=== PATIENT | female | born 1960 | race Two or more races ===

== ENCOUNTER 2024-11-21 17:54 | Inpatient (IN) | payer OTHER, MEDICAID ==
[~2024-11-21] VITALS: Ht 165.1 cm; Wt 90.9 kg
--- NOTE | 2024-11-21 19:34 | ED.PDOC ---
History of Present Illness HPI Comments 64-YEAR-OLD FEMALE PRESENTS TO ER WITH COMPLAINTS OF FLU-LIKE SYMPTOMS X2 DAYS. PATIENT REPORTS THAT SHE HAS BEEN EXPERIENCING FRONTAL HEADACHE, INTERMITTENT NAUSEA/VOMITING, BODY ACHES, GENERALIZED WEAKNESS AND DRY COUGH X2 DAYS. DENIES USE OF MEDICATIONS FOR CURRENT SYMPTOMS. SHE RATES HER CURRENT FRONTAL HEADACHE AND BODY ACHES PAIN A 9/10. STATES SHE HAS BEEN AROUND HER GRANDDAUGHTER WHO HAS ALSO BEEN EXPERIENCING SIMILAR SYMPTOMS AND PRESENTS TO ER IN MILD DISTRESS, PRESENT IN WHEELCHAIR. DENIES FEVER, SHORTNESS OF BREATH, CHEST PAIN, HEMOPTYSIS, SORE THROAT, DIZZINESS, ABDOMINAL PAIN, CHANGES IN URINATION/BM OR ANY FURTHER SYMPTOMS/COMPLAINTS Chief Complaint: Flu like Time Seen by MD: 18:09 Primary Care Provider: UNKNOWN Reviewed Notes: Nurses Notes, Medications, Allergies Information Source: Patient Mode of Arrival: Ambulatory Past Medical History PAST MEDICAL HISTORY: Denies Surgical History: Denies all surgeries Family History Family History: Unknown Social History Smoker: Non-Smoker Alcohol: Denies ETOH Use Drugs: Denies Drug Use Lives In: Home Constitutional: See HPI EENTM: No Symptoms Reported Respiratory: See HPI Cardiovascular: No Symptoms Reported Gastrointestinal: See HPI Genitourinary: No Symptoms Reported Neurological: See HPI Musculoskeletal: No Symptoms Reported Integumentary: No Symptoms Reported Allergic/Immunocompromised: others (DENIES) Hematologic/Lymphatic: No Symptoms Reported Endocrine: No Symptoms Reported Psychiatric: No symptoms Reported Physical Exam General Appearance: Mild Distress, Obese HEENT: Normal ENT Inspection, PERRL/EOMI, Pharynx Normal, TMs Normal Neck: Full Range of Motion, Non-Tender, Normal Respiratory: Chest Non-Tender, Lungs Clear, No Accessory Muscle Use, No Respiratory Distress, Normal Breath Sounds Cardiovascular: No Murmur, No Gallop, Regular Rate/Rhythm Breast Exam: Deferred Gastrointestinal: No Organomegaly, Non Tender, No Pulsatile Mass, Normal Bowel Sounds, Soft Genitalia: Deferred Pelvic: Deferred Rectal: Deferred Extremities: Normal capillary refill, Normal range of motion Neurologic: Alert, production control analyst II-XII nml as Tested, No Motor Deficits, No Sensory Deficits Cerebellar Function: Normal Reflexes: Normal Skin: Dry, Normal Color, Warm Peripheral Pulses: 2+ Radial (R), 2+ Radial (L), 2+ Brachial (R), 2+ Brachial (L) Lymphatic: No Adenopathy Was a procedure done? Was a procedure done?: No Sedation Sedation?: No EKG EKG : Pulse Rate (adult): 63 [place]: Normal Cardiac Rhythm: NSR (SR) Fever Differential Dx Differential Diagnosis: Pneumonia, Pulmonary Embolus, Respiratory Failure, Seps is, Other (COVID-19, INFLUENZA) X-Ray, Labs, Meds, VS Vital Signs Date Time Temp Pulse Resp B/P (MAP) Pulse Ox O2 Delivery O2 Flow Rate FiO2 11/21/24 21:22 63 11/21/24 21:19 63 11/21/24 20:54 79 16 136/79 (98) 92 11/21/24 20:20 Room Air* 0 21 11/21/24 19:32 Room Air* 0 21 11/21/24 18:59 81 14 92 Room Air 11/21/24 18:59 98.9 81 14 138/69 (92) 92 98.9 11/21/24 18:39 98.9 81 14 138/69 (92) 92 Lab Test 11/21/24 19:47 11/21/24 19:01 Range/Units White Blood Count 2.9 L 4.4-10.8 10^3/uL Red Blood Count 5.28 H 4.0-5.20 10^6/uL Hemoglobin 14.9 12.2-16.2 g/dL Hematocrit 43.6 36.0-46.0 % Mean Corpuscular Volume 82.6 80.0-100.0 fL Mean Corpuscular Hemoglobin 28.3 28.0-32.0 pg Mean Corpuscular Hemoglobin Concent 34.3 32.0-36.0 g/dL Red Cell Distribution Width 13.1 11.8-14.3 % Platelet Count 148 140-450 10^3/uL Mean Platelet Volume 9.6 6.9-10.8 fL Neutrophils (%) (Auto) 66.7 37.0-80.0 % Lymphocytes (%) (Auto) 20.7 10.0-50.0 % Monocytes (%) (Auto) 11.8 0.0-12.0 % Eosinophils (%) (Auto) 0.0 0.0-7.0 % Basophils (%) (Auto) 0.8 0.0-2.0 % Neutrophils # (Auto) 1.9 1.6-8.6 10 ^3/uL Lymphocytes # (Auto) 0.6 0.4-5.4 10 ^3/uL Monocytes # (Auto) 0.3 0-1.3 10 ^3/uL Eosinophils # (Auto) 0 0-0.8 10 ^3/uL Basophils # (Auto) 0 0-0.2 10 ^3/uL Nucleated Red Blood Cells 0.7 % Sodium Level 137 136-145 mmol/L Potassium Level 3.5 3.5-5.1 mmol/L Chloride Level 97 L 98-107 mmol/L Carbon Dioxide Level 29 20-31 mmol/L Anion Gap 11 5-15 Blood Urea Nitrogen 12 9-23 mg/dL Creatinine 1.20 H 0.550-1.02 mg/dL Glomerular Filtration Rate Calc 51 >90 mL/min BUN/Creatinine Ratio 10.0 10.0-20.0 Serum Glucose 86 74-106 mg/dL Lactic Acid Level 1.6 0.4-2.0 mmol/L Calcium Level 10.6 H 8.7-10.4 mg/dL Troponin I High Sensitivity 60 *H </=34 ng/L Influenza Type A Antigen Positive Negative Influenza Type B Antigen Negative Negative SARS-CoV-2 Antigen (Rapid) Negative NEGATIVE Current Medications Medications (Trade) Dose Ordered Sig/Darell Route Start Time Stop Time Status Last Admin Sodium Chloride 1,000 ml @ 1,000 mls/hr Q1H ONCE IV 11/21/24 19:30 11/21/24 20:29 DC 11/21/24 20:10 Ondansetron HCl (Zofran Po) 4 mg ONCE ONCE PO 11/21/24 19:30 11/21/24 19:31 DC 11/21/24 19:43 Methylprednisolone Sodium Succinate (Solu Medrol) 125 mg ONCE ONCE IV 11/21/24 19:30 11/21/24 19:31 DC 11/21/24 20:10 Acetaminophen (Tylenol Tablet) 650 mg ONCE ONCE PO 11/21/24 19:30 11/21/24 19:31 DC 11/21/24 19:43 Doxycycline Hyclate 100 ml @ 50 mls/hr ONCE ONCE IV 11/21/24 20:15 11/21/24 22:14 DC 11/21/24 21:05 Ceftriaxone Sodium 50 ml @ 100 mls/hr ONCE ONCE IV 11/21/24 20:15 11/21/24 20:44 DC 11/21/24 20:28 PATIENT: GAUTAM BALTAZARCCT: [id number]: [id number] : 1960 LOC: ER ROOM / BED: / AGE / SEX: 64 / F ADM STATUS: REG ER SERVICE 26 ORDERING PHYSICIAN: SAMANTHA HALE PROCEDURE(s): CXR1 - CHEST XRAY 1 VIEW REASON: COUGH ORDER NUMBER(s): [id number], ACCESSION NUMBER(s): [id number] CHEST RADIOGRAPH Indication: COUGH Technique: Single frontal view of the chest was obtained COMPARISON: None FINDINGS: Lines and Tubes: None Lungs: Congestion Pleura: No effusion. No pneumothorax. Cardiomediastinal contours: Cardiomegaly Bones: Unremarkable IMPRESSION: Mild pulmonary vascular congestion versus viral pneumonia. ATED BY: THEE NARVAEZ MD DICTATED DATE/TIME: 11/21/241999 SIGNED BY: THEE NARVAEZ MD SIGNED DATE/TIME: 11/21/241999 CC: PATIENT: DONALD BALTAZAR ACCT: [id number] UNIT: [id number] : 1960 LOC: ER ROOM / BED: / AGE / SEX: 64 / F ADM STATUS: REG ER SERVICE 26 ORDERING PHYSICIAN: SAMANTHA HALE PROCEDURE(s): CXR1 - CHEST XRAY 1 VIEW REASON: COUGH ORDER NUMBER(s): [id number], ACCESSION NUMBER(s): [id number] CHEST RADIOGRAPH Indication: COUGH Technique: Single frontal view of the chest was obtained COMPARISON: None FINDINGS: Lines and Tubes: None Lungs: Congestion Pleura: No effusion. No pneumothorax. Cardiomediastinal contours: Cardiomegaly Bones: Unremarkable IMPRESSION: Mild pulmonary vascular congestion versus viral pneumonia. ATED BY: THEE NARVAEZ MD DICTATED DATE/TIME: 11/21/241999 SIGNED BY: THEE NARVAEZ MD SIGNED DATE/TIME: 11/21/241999 CC: CBC REVIEWED-WBC 2.9 BMP REVIEWED WITHOUT ANY SIGNIFICANT ABNORMALITIES CT HEAD W/O CONTRAST REVIEWED CHEST X-RAY REVIEWED ALL SWAB RESULTS REVIEWED-INFLUENZA A POSITIVE HEP-LOCK IV ORDERED NS 1 L IV ORDERED ROCEPHIN 1 G IV ORDERED DOXYCYCLINE 100 MG IV ORDERED ZOFRAN 4 MG P.O. ORDERED SOLU-MEDROL 125 MG IV ORDERED TYLENOL 650 MG P.O. ORDERED EKG REVIEWED TROPONIN ORDERED BLOOD CULTURES ORDERED LACTIC ACID ORDERED PATIENTS PULSE OX 90-92% ON RA PATIENT PLACED ON 2L NC AND RESTING COMFORTABLY AT BEDSIDE PATIENT ADMITTED TO HOSPITALIST FOR PNEUMONIA AND NEED FOR IV ANTIBIOTICS Images Reviewed?: Images reviewed and evaluated by me Time of 1ST Reevaluation: 19:32 Reevaluation 1ST: N/A Time of 2ND Reevaluation: 20:44 Reevaluation 2ND: Unchanged Patient Education/Counseling: Diagnosis, Treatment, Prognosis, Need For Follow Up Family Education/Counseling: No Family Present Departure 1 Departure Time of Disposition: 21:02 Impression: Primary Impression: Pneumonia Qualified Codes: J18.9 - Pneumonia, unspecified organism Additional Impression: Influenza A Disposition: 09 ADMITTED INPATIENT Condition: Stable Critical Care Note Critical Care Time?: No Stability Stability form required: No Heart Score Heart Score: Heart Score Response (Comments) Value History N/A 0 EKG N/A 0 Age N/A 0 Risk Factors N/A 0 Troponin N/A 0 Total 0 SAMANTHA HALE Nov 21, 2024 19:34
[2024-11-21] MEDS: ONDANSETRON ODT 4 MG TAB PO ONE (19:43)
[2024-11-21] MEDS: ACETAMINOPHEN 325 MG TAB PO ONE (19:43)
[2024-11-21 19:59] LABS: COVID19 ANTIGEN SOFIA FIA NEGATIVE (NEGATIVE)
[2024-11-21 20:00] LABS: Rapid Influenza B Negative (Negative)
[2024-11-21 20:01] LABS: Rapid Influenza A Positive (Negative)
--- NOTE | 2024-11-21 20:05 | DVH ---
CHEST RADIOGRAPH Indication: COUGH Technique: Single frontal view of the chest was obtained COMPARISON: None FINDINGS: Lines and Tubes: None Lungs: Congestion Pleura: No effusion. No pneumothorax. Cardiomediastinal contours: Cardiomegaly Bones: Unremarkable IMPRESSION: Mild pulmonary vascular congestion versus viral pneumonia.
[2024-11-21] MEDS: methylPREDNISolone SOD SUCC 125 MG/2 ML VL IV ONE (20:10)
[2024-11-21] MEDS: SODIUM CHLORIDE 0.9% 1,000 ML IV ONE (20:10)
--- NOTE | 2024-11-21 20:13 | DVH ---
Exam: CT HEAD WITHOUT CONTRAST History: HEADACHE Technique: [address] images through the posterior fossa and the supratentorial compart ment were acquired without contrast and imaged using soft tissue and bone algorithms. RADIATION DOSE: DLP 916.26 mGy.cm; CTDI vol 57.16 mGy. Comparison: None Findings: There is no evidence of an intracranial hemorrhage, acute large vessel infarct, mass effect, or midli ne shift. Moderate calcification of the carotid siphons. The calvarium, orbits, paranasal sinuses, sella, middle ears, and mastoids are unremarkable. The superficial soft tissues are within normal limits. Impression: 1. No acute intracranial abnormality.
[2024-11-21 20:23] LABS: Basophils # (auto) 0 10 ^3/uL (0-0.2); Basophils % (auto) 0.8 % (0.0-2.0); Eosinophils # (auto) 0 10 ^3/uL (0-0.8); Hematocrit 43.6 % (36.0-46.0); Hemoglobin 14.9 g/dL (12.2-16.2); Lymphocytes # (auto) 0.6 10 ^3/uL (0.4-5.4); Lymphocytes % (auto) 20.7 % (10.0-50.0); Mean Corpuscular Hemoglobin 28.3 pg (28.0-32.0); Mean Corpuscular Hgb Conc. 34.3 g/dL (32.0-36.0); Mean Corpuscular Volume 82.6 fL (80.0-100.0); Monocytes # (auto) 0.3 10 ^3/uL (0-1.3); Monocytes % (auto) 11.8 % (0.0-12.0); Neutrophils # (auto) 1.9 10 ^3/uL (1.6-8.6); Neutrophils % (auto) 66.7 % (37.0-80.0); Nucleated Red Blood Cells % 0.7 %; Platelet Count (auto) 148 10^3/uL (140-450); Red Blood Cells 5.28 10^6/uL (4.0-5.20); Red Cell Distribution Width 13.1 % (11.8-14.3); White Blood Cell 2.9 10^3/uL (4.4-10.8)
[2024-11-21] MEDS: cefTRIAXone 1GM/50ML D5W 50 ML IV ONE (20:28)
[2024-11-21 20:32] LABS: Sodium 137 mmol/L (136-145)
[2024-11-21 20:33] LABS: Anion Gap 11 (5-15); Carbon Dioxide 29 mmol/L (20-31)
[2024-11-21 20:38] LABS: Blood Urea Nitrogen 12 mg/dL (9-23); Glucose 86 mg/dL (74-106)
[2024-11-21 20:39] LABS: Calcium 10.6 mg/dL (8.7-10.4); Chloride 97 mmol/L (98-107); Potassium 3.5 mmol/L (3.5-5.1)
[2024-11-21] MEDS: DOXYCYCLINE 100MG/100ML 100 ML IV ONE (21:05)
[2024-11-21] MEDS ORDERED: ALBUTEROL SULF 2.5 MG/0.5ML(0.5%) NEB SOLN NEB PRN (21:30)
[2024-11-21 22:01] VITALS: O2SAT 97
[2024-11-21] MEDS: OSELTAMIVIR 75 MG CAP PO ONE (22:17)
[2024-11-21] MEDS: ASPirin 81 mg TAB PO ONE (22:18)
[2024-11-21 22:23] VITALS: BP 136/79; PULSE 56; RESP 18; TEMP 98.9; O2SAT 97
[2024-11-21 22:51] VITALS: BP 134/71; PULSE 60; RESP 18; TEMP 99.9; O2SAT 93
--- NOTE | 2024-11-21 23:02 | DVHHP2 ---
History of Present Illness Reason for Visit: Shortness of breaths History of Present Illness 64-year-old female presents for evaluation of flu-like symptoms. Patient endorses a two day history of having flu-like symptoms including headache, cough with thick green phlegm, body aches, shortness for breath, nausea generalized we akness. Currently denies chest pain or palpitations. Denies any other acute complaints at the moment. Past Medical History Denies Past Surgical History Denies Family History Noncontributory Smoke: No ALCOHOL: none Drugs: None Lives: with Family Review of Systems Review of Systems Review of systems are currently negative otherwise addressed in HPI. Allergies: Coded Allergies: NO KNOWN ALLERGIES (Unverified , 11/21/24) Medications Current Medications Medications Dose Ordered Sig/Darell Route Start Time Stop Time Status Last Admin Dose Admin Ceftriaxone Sodium 50 ml @ 100 mls/hr DAILY@09 IV 11/22/24 09:00 Azithromycin 250 ml @ 125 mls/hr DAILY IV 11/22/24 10:00 Albuterol 2.5 mg Q6HPRN PRN NEB 11/21/24 21:30 Temazepam 15 mg QHSP PRN PO 11/21/24 21:30 Ondansetron HCl 4 mg Q4HP PRN IV 11/21/24 21:30 Acetaminophen 650 mg Q6HP PRN PO 11/21/24 21:30 Oseltamivir Phosphate 30 mg Q12HR PO 11/22/24 10:00 11/27/24 09:59 Exam Vital Signs Vital Signs Date Time Temp Pulse Resp B/P (MAP) Pulse Ox O2 Delivery O2 Flow Rate FiO2 11/21/24 22:51 99.9 60 18 134/71 (92) 93 99.9 11/21/24 22:23 2.0 11/21/24 22:01 Nasal Cannula 11/21/24 22:01 28 Exam Gen: 64-year-old female in mild distress Skin: Warm, dry, normal color and texture, no rash. HEENT: Normocephalic atraumatic, mucous membranes moist and pink. Neck: Cervical and supraclavicular nodes normal without enlargement, trachea is midline, thyroid gland is normal without masses. Pulmonary: Diminished breath sounds bilaterally Cardiac: Regular rate and rhythm. No murmur Abdomen: Soft, nontender, nondistended, bowel sounds present all 4 quadrants, no guarding, no rigidity, no organomegaly. Extremities: No cyanosis, clubbing, no edema Neuro: Cranial nerves II through XII grossly intact, normal affect and speech, no focal motor deficits. Labs/Xrays ORDERING PHYSICIAN: SAMANTHA HALE PROCEDURE(s): CXR1 - CHEST XRAY 1 VIEW REASON: COUGH ORDER NUMBER(s): [id number], ACCESSION NUMBER(s): [id number] CHEST RADIOGRAPH Indication: COUGH Technique: Single frontal view of the chest was obtained COMPARISON: None FINDINGS: Lines and Tubes: None Lungs: Congestion Pleura: No effusion. No pneumothorax. Cardiomediastinal contours: Cardiomegaly Bones: Unremarkable IMPRESSION: Mild pulmonary vascular congestion versus viral pneumonia. RING PHYSICIAN: SAMANTHA HALE PROCEDURE(s): HWOCT - HEAD WITHOUT CONTRAST REASON: HEADACHE ORDER NUMBER(s): [id number], ACCESSION NUMBER(s): [id number] Exam: CT HEAD WITHOUT CONTRAST History: HEADACHE Technique: [address] images through the posterior fossa and the supratentorial compartment were acquired without contrast and imaged using soft tissue and bone algorithms. RADIATION DOSE: DLP 916.26 mGy.cm; CTDI vol 57.16 mGy. Comparison: None Findings: There is no evidence of an intracranial hemorrhage, acute large vessel infarct, mass effect, or midline shift. Moderate calcification of the carotid siphons. The calvarium, orbits, paranasal sinuses, sella, middle ears, and mastoids are unremarkable. The superficial soft tissues are within normal limits. Impression: 1. No acute intracranial abnormality. Labs Test 11/21/24 19:47 11/21/24 19:01 Range/Units White Blood Count 2.9 L 4.4-10.8 10^3/uL Red Blood Count 5.28 H 4.0-5.20 10^6/uL Hemoglobin 14.9 12.2-16.2 g/dL Hematocrit 43.6 36.0-46.0 % Mean Corpuscular Volume 82.6 80.0-100.0 fL Mean Corpuscular Hemoglobin 28.3 28.0-32.0 pg Mean Corpuscular Hemoglobin Concent 34.3 32.0-36.0 g/dL Red Cell Distribution Width 13.1 11.8-14.3 % Platelet Count 148 140-450 10^3/uL Mean Platelet Volume 9.6 6.9-10.8 fL Neutrophils (%) (Auto) 66.7 37.0-80.0 % Lymphocytes (%) (Auto) 20.7 10.0-50.0 % Monocytes (%) (Auto) 11.8 0.0-12.0 % Eosinophils (%) (Auto) 0.0 0.0-7.0 % Basophils (%) (Auto) 0.8 0.0-2.0 % Neutrophils # (Auto) 1.9 1.6-8.6 10 ^3/uL Lymphocytes # (Auto) 0.6 0.4-5.4 10 ^3/uL Monocytes # (Auto) 0.3 0-1.3 10 ^3/uL Eosinophils # (Auto) 0 0-0.8 10 ^3/uL Basophils # (Auto) 0 0-0.2 10 ^3/uL Nucleated Red Blood Cells 0.7 % Sodium Level 137 136-145 mmol/L Potassium Level 3.5 3.5-5.1 mmol/L Chloride Level 97 L 98-107 mmol/L Carbon Dioxide Level 29 20-31 mmol/L Anion Gap 11 5-15 Blood Urea Nitrogen 12 9-23 mg/dL Creatinine 1.20 H 0.550-1.02 mg/dL Glomerular Filtration Rate Calc 51 >90 mL/min BUN/Creatinine Ratio 10.0 10.0-20.0 Serum Glucose 86 74-106 mg/dL Lactic Acid Level 1.6 0.4-2.0 mmol/L Calcium Level 10.6 H 8.7-10.4 mg/dL Troponin I High Sensitivity 60 *H </=34 ng/L Influenza Type A Antigen Positive Negative Influenza Type B Antigen Negative Negative SARS-CoV-2 Antigen (Rapid) Negative NEGATIVE Assessment/Plan Assessment/Plan Assessment Acute respiratory distress Community-acquired pneumonia Influenza Acute kidney injury Plan Admit the patient to Med surge to the hospitalist Rocephin/azithromycin Tamiflu Med nebs Continue treatment per orders. Plan discussed with: Patient [facility] Procedure Category Date Status Time Ceftriaxone 1gm/50ml PHA 11/22/24 In Process D5w (Rocephin) 09:00 Azithromycin 500mg/ PHA 11/22/24 In Process 250ml (Zithromax 50 10:00 Albuterol Medneb PHA 11/21/24 In Process (Ventolin Medneb) 21:30 Basic Metabolic Panel LAB 11/22/24 Logged 04:00 Admit ADMIT 11/21/24 Transmitted 21:27 Temazepam (Restoril) PHA 11/21/24 In Process 21:30 Ondansetron Hcl PHA 11/21/24 In Process (Zofran) 21:30 Complete Blood Count LAB 11/22/24 Logged 04:00 Condition: Stable MITCH 11/21/24 In Process 21:27 Acetaminophen Tablet PHA 11/21/24 In Process (Tylenol Tablet) 21:30 Bedrest With Bathroom MITCH 11/21/24 In Process Privileg 21:27 Oseltamivir 30mg PHA 11/22/24 In Process Capsule (Tamiflu 30mg 10:00 Troponin-I Hs LAB 11/21/24 Verified 22:58 Troponin-I Hs LAB 11/21/24 Verified 23:58 Date of Service: Nov 21, 2024 Billing Provider: MAK KUMAR Common Visit Codes: [id number] INP/OBS CARE (HIGH) MAK KUMAR Nov 21, 2024 23:02
[2024-11-22] VITALS (13 sets, daily range): BP systolic 114–167; BP diastolic 61–90; PULSE 51–66; RESP 16–20; TEMP 98.3–99; O2SAT 90–98
[2024-11-22] MEDS: ACETAMINOPHEN 325 MG TAB PO PRN (02:06)
[2024-11-22] MEDS ORDERED: TRIA37.586 PO (05:10)
[2024-11-22] MEDS ORDERED: OMEP20TA PO (05:10)
[2024-11-22] MEDS ORDERED: MECL12.586 PO (05:10)
[2024-11-22] MEDS ORDERED: LOSA-533 PO (05:10)
[2024-11-22] MEDS ORDERED: AML5T PO (05:10)
[2024-11-22 07:47] LABS: Basophils # (auto) 0 10 ^3/uL (0-0.2); Basophils % (auto) 0.4 % (0.0-2.0); Eosinophils # (auto) 0 10 ^3/uL (0-0.8); Hemoglobin 14.9 g/dL (12.2-16.2); Lymphocytes # (auto) 0.5 10 ^3/uL (0.4-5.4); Lymphocytes % (auto) 23.7 % (10.0-50.0); Mean Corpuscular Hemoglobin 28.3 pg (28.0-32.0); Mean Corpuscular Hgb Conc. 33.9 g/dL (32.0-36.0); Mean Corpuscular Volume 83.6 fL (80.0-100.0); Monocytes # (auto) 0.1 10 ^3/uL (0-1.3); Monocytes % (auto) 2.6 % (0.0-12.0); Neutrophils # (auto) 1.7 10 ^3/uL (1.6-8.6); Neutrophils % (auto) 73.3 % (37.0-80.0); Nucleated Red Blood Cells % 0.2 %; Platelet Count (auto) 144 10^3/uL (140-450); Red Blood Cells 5.26 10^6/uL (4.0-5.20); Red Cell Distribution Width 13.6 % (11.8-14.3); White Blood Cell 2.3 10^3/uL (4.4-10.8)
[2024-11-22 07:59] LABS: Chloride 101 mmol/L (98-107); Sodium 138 mmol/L (136-145)
[2024-11-22 08:00] LABS: Anion Gap 11 (5-15); Carbon Dioxide 26 mmol/L (20-31)
[2024-11-22 08:01] LABS: Calcium 9.8 mg/dL (8.7-10.4)
[2024-11-22 08:06] LABS: BUN/Creatinine Ratio 14.2 (10.0-20.0); Blood Urea Nitrogen 17 mg/dL (9-23)
[2024-11-22 08:08] LABS: Glucose 107 mg/dL (74-106); Potassium 3.3 mmol/L (3.5-5.1)
--- NOTE | 2024-11-22 08:14 | ECG ---
[facility] Test Date: 2024-11-21 Test Time: 21:19:19 Pat Name: DONALD TAI Department: ER Room: 0202 A Gender: F Swedger: [id number] : 1960 Requested By: SAMANTHA HALE Order Number: [id number] Reading MD: Bhargav Brice Measurements Intervals [place] Rate: 63 P: 28 DC: 164 QRS: 32 QRSD: 89 T: 20 QT: 470 QTc: 482 Interpretive Statements Sinus rhythm Abnormal R-wave progression, early transition Left ventricular hypertrophy Electronically Signed On 11-25-2024 15:45:22 PST by Bhargav Brice Please click the below link to view image of tracing.
[2024-11-22] MEDS: cefTRIAXone 1GM/50ML D5W 50 ML IV SCH (09:08)
[2024-11-22] MEDS: OSELTAMIVIR 30 MG CAP PO SCH ×2 (09:32→14:30)
[2024-11-22] MEDS: AZITHROMYCIN 500MG/ 250ML 250 ML IV SCH (09:32)
--- NOTE | 2024-11-22 11:58 | DVHPN2 ---
Reviewed: Care Plan, H&P, Labs, Medications, Previous Orders, Radiology Changes from previous H/P or p: No Changes Objective Vitals Vital Signs Date Time Temp Pulse Resp B/P (MAP) Pulse Ox O2 Delivery O2 Flow Rate FiO2 11/22/24 10:00 97 Nasal Cannula 2.0 11/22/24 10:00 28 11/22/24 08:41 98.4 53 17 153/84 (107) 98.4 Intake/Output Intake and Output 11/22/24 07:00 Intake Total 1150 ml Balance 1150 ml Intake Oral 0 ml IV Total 1150 ml Medications Current Medications Medications Dose Ordered Sig/Darell Route Start Time Stop Time Status Last Admin Dose Admin Ceftriaxone Sodium 50 ml @ 100 mls/hr DAILY@09 IV 11/22/24 09:00 11/22/24 09:08 100 MLS/HR Azithromycin 250 ml @ 125 mls/hr DAILY IV 11/22/24 10:00 11/22/24 09:32 125 MLS/HR Albuterol 2.5 mg Q6HPRN PRN NEB 11/21/24 21:30 Temazepam 15 mg QHSP PRN PO 11/21/24 21:30 Ondansetron HCl 4 mg Q4HP PRN IV 11/21/24 21:30 Acetaminophen 650 mg Q6HP PRN PO 11/21/24 21:30 11/22/24 02:06 650 MG Oseltamivir Phosphate 30 mg Q12HR PO 11/22/24 10:00 11/27/24 09:59 11/22/24 09:32 30 MG Laboratory Results Laboratory Tests 11/22/24 06:40 Chemistry Test 11/21/24 19:47 11/22/24 06:40 Calcium Level 10.6 mg/dL (8.7-10.4) H 9.8 mg/dL (8.7-10.4) Labs and/or images reviewed: Labs reviewed by me, Image(s) reviewed by me Assessment/Plan Assessment/Plan Hypoxic respiratory failure: Oxygen by nasal cannula Influenza type A: Tamiflu 75 mg p.o. b.i.d. for five days Bilateral community-acquired pneumonia: Rocephin azithromycin Time spent 45 minutes Plan discussed with: Patient Date of Service: Nov 22, 2024 Billing Provider: NAOMI COUCH MD Common Visit Codes: [id number] INP/OBS CARE(HIGH) NAOMI COUCH MD Nov 22, 2024 11:58
[2024-11-22] MEDS: LOSARTAN POTASSIUM 25 MG TAB PO SCH (14:31)
[2024-11-22] MEDS: amLODIPine BESYLATE 5 MG TAB PO SCH (14:32)
[2024-11-22] MEDS: hydroCHLOROthiazide 25 MG TAB PO ONE (14:32)
[2024-11-23] VITALS (10 sets, daily range): BP systolic 100–127; BP diastolic 59–73; PULSE 51–101; RESP 18; TEMP 98.3–99; O2SAT 90–98
--- NOTE | 2024-11-23 08:18 | DVHPN2 ---
Reviewed: Care Plan, H&P, Labs, Medications, Previous Orders, Radiology Changes from previous H/P or p: No Changes Objective Vitals Vital Signs Date Time Temp Pulse Resp B/P (MAP) Pulse Ox O2 Delivery O2 Flow Rate FiO2 11/23/24 08:09 18 96 Room Air* 0 21 11/23/24 05:00 98.3 61 127/71 (89) 98.3 Intake/Output Intake and Output 11/23/24 07:00 Intake Total 1150 ml Balance 1150 ml Intake Oral 1150 ml # Voids 7 # Bowel Movements 5 Medications Current Medications Medications Dose Ordered Sig/Darell Route Start Time Stop Time Status Last Admin Dose Admin Ceftriaxone Sodium 50 ml @ 100 mls/hr DAILY@09 IV 11/22/24 09:00 11/22/24 09:08 100 MLS/HR Azithromycin 250 ml @ 125 mls/hr DAILY IV 11/22/24 10:00 11/22/24 09:32 125 MLS/HR Albuterol 2.5 mg Q6HPRN PRN NEB 11/21/24 21:30 Temazepam 15 mg QHSP PRN PO 11/21/24 21:30 Ondansetron HCl 4 mg Q4HP PRN IV 11/21/24 21:30 Acetaminophen 650 mg Q6HP PRN PO 11/21/24 21:30 11/22/24 19:51 650 MG Amlodipine Besylate 10 mg DAILY PO 11/22/24 12:45 11/22/24 14:32 10 MG Losartan Potassium 25 mg DAILY PO 11/22/24 12:45 11/22/24 14:31 25 MG Hydrochlorothiazide 25 mg DAILY PO 11/23/24 10:00 Oseltamivir Phosphate 75 mg Q12HR PO 11/23/24 10:00 11/28/24 09:59 UNV Laboratory Results Laboratory Tests 11/22/24 06:40 Microbiology Microbiology Date/Time Source Procedure Growth Status 11/21/24 21:40 Blood Blood Culture - Preliminary NO GROWTH AFTER 24 HOURS OF INCUBATION. Resulted Labs and/or images reviewed: Labs reviewed by me, Image(s) reviewed by me Assessment/Plan Assessment/Plan Acute Hypoxic respiratory failure: Oxygen by nasal cannula Influenza type A: Tamiflu 75 mg p.o. b.i.d. for five days Bilateral community-acquired pneumonia: Rocephin azithromycin Nausea Secondary to flu: Zofran p.r.n. Hypertension: Amlodipine Time spent 45 minutes Plan discussed with: Patient My Orders Orders - NAOMI COUCH MD Procedure Category Date Status Time Cardiac DIET 11/22/24 Transmitted Diet-2gna,Lofat,Lochol Lunch Amlodipine Tablet PHA 11/22/24 In Process (Norvasc Tablet) 12:45 Losartan Tablet PHA 11/22/24 In Process (Cozaar Tablet) 12:45 Hydrochlorothiazide PHA 11/23/24 In Process Tablet (Hydrochlorot 10:00 Oseltamivir 30mg PHA 11/23/24 Logged Capsule (Tamiflu 30mg 10:00 Date of Service: Nov 23, 2024 Billing Provider: NAOMI COUCH MD Common Visit Codes: [id number] INP/OBS CARE(HIGH) NAOMI COUCH MD Nov 23, 2024 08:18
[2024-11-23] MEDS: ONDANSETRON HCL 4 MG/2 ML VIAL IV PRN (08:22)
[2024-11-23] MEDS: hydroCHLOROthiazide 25 MG TAB PO SCH (09:32)
[2024-11-23] MEDS: OSELTAMIVIR 75 MG CAP PO SCH (09:33)
[2024-11-23] MEDS: amLODIPine BESYLATE 5 MG TAB PO SCH (09:33)
[2024-11-23] MEDS: HYDROcodone-ACET 5/325MG TAB PO PRN (11:18)
[2024-11-23] MEDS: TEMAZEPAM 15 MG CAP PO PRN (21:21)
[2024-11-24] VITALS (7 sets, daily range): BP systolic 110–124; BP diastolic 52–73; PULSE 55–62; RESP 18–19; TEMP 37.1; O2SAT 94–99
--- NOTE | 2024-11-24 08:01 | DVHPN2 ---
Reviewed: Care Plan, H&P, Labs, Medications, Previous Orders, Radiology Changes from previous H/P or p: No Changes Objective Vitals Vital Signs Date Time Temp Pulse Resp B/P (MAP) Pulse Ox O2 Delivery O2 Flow Rate FiO2 11/24/24 07:59 18 96 Room Air* 0 21 11/24/24 05:00 98.7 62 120/63 (82) 98.7 Intake/Output Intake and Output 11/24/24 07:00 Intake Total 2810 ml Balance 2810 ml Intake Oral 2810 ml # Voids 8 Medications Current Medications Medications Dose Ordered Sig/Darell Route Start Time Stop Time Status Last Admin Dose Admin Ceftriaxone Sodium 50 ml @ 100 mls/hr DAILY@09 IV 11/22/24 09:00 11/23/24 08:32 100 MLS/HR Azithromycin 250 ml @ 125 mls/hr DAILY IV 11/22/24 10:00 11/23/24 09:30 125 MLS/HR Albuterol 2.5 mg Q6HPRN PRN NEB 11/21/24 21:30 Temazepam 15 mg QHSP PRN PO 11/21/24 21:30 11/23/24 21:21 15 MG Ondansetron HCl 4 mg Q4HP PRN IV 11/21/24 21:30 11/23/24 08:22 4 MG Acetaminophen 650 mg Q6HP PRN PO 11/21/24 21:30 11/22/24 19:51 650 MG Losartan Potassium 25 mg DAILY PO 11/22/24 12:45 11/23/24 09:30 25 MG Hydrochlorothiazide 25 mg DAILY PO 11/23/24 10:00 11/23/24 09:32 25 MG Oseltamivir Phosphate 75 mg Q12HR PO 11/23/24 10:00 11/28/24 09:59 11/23/24 21:21 75 MG Amlodipine Besylate 10 mg DAILY PO 11/23/24 10:00 11/23/24 09:33 10 MG Acetaminophen/ Hydrocodone Bitart 1 tab Q4HPRN PRN PO 11/23/24 11:00 11/23/24 19:45 1 TAB Laboratory Results Laboratory Tests 11/22/24 06:40 Microbiology Microbiology Date/Time Source Procedure Growth Status 11/21/24 21:40 Blood Blood Culture - Preliminary NO GROWTH AFTER 48 HOURS OF INCUBATION. Resulted Labs and/or images reviewed: Labs reviewed by me, Image(s) reviewed by me Assessment/Plan Assessment/Plan Acute Hypoxic respiratory failure:resolved Influenza type A: Tamiflu 75 mg p.o. b.i.d. for five days Bilateral community-acquired pneumonia: Rocephin azithromycin Nausea Secondary to flu: Zofran p.r.n. Hypertension: Amlodipine Time spent 45 minutes Pt on room air stable vitals Plan discussed with: Patient My Orders Orders - NAOMI COUCH MD Procedure Category Date Status Time Amlodipine Tablet PHA 11/23/24 In Process (Norvasc Tablet) 10:00 Oseltamivir 75mg PHA 11/23/24 In Process Capsule (Tamiflu 75mg 10:00 Hydrocodone-Acet PHA 11/23/24 In Process 5/325mg Tab ([place] 11:00 Date of Service: Nov 24, 2024 Billing Provider: NAOMI COUCH MD Common Visit Codes: [id number] INP/OBS CARE(HIGH) NAOMI COUCH MD Nov 24, 2024 08:01
[2024-11-24] MEDS ORDERED: AZIT500T66 PO (08:06)
[2024-11-24] MEDS ORDERED: OSEL75CA5 PO (08:06)
[2024-11-24] MEDS ORDERED: ZOFR4T PO (08:06)
--- NOTE | 2024-11-24 08:11 | DVHDS2 ---
Discharge Summary Date of Admission Nov 21, 2024 at 21:43 Date of Discharge: Nov 24, 2024 Admitting Diagnosis Shortness of breath Wounds: None Labs/Diagnostic Data: Laboratory Results Test 11/22/24 06:40 11/22/24 01:17 11/21/24 19:47 11/21/24 19:01 White Blood Count 2.3 10^3/uL (4.4-10.8) Red Blood Count 5.26 10^6/uL (4.0-5.20) Hemoglobin 14.9 g/dL (12.2-16.2) Hematocrit 44.0 % (36.0-46.0) Mean Corpuscular Volume 83.6 fL (80.0-100.0) Mean Corpuscular Hemoglobin 28.3 pg (28.0-32.0) Mean Corpuscular Hemoglobin Concent 33.9 g/dL (32.0-36.0) Red Cell Distribution Width 13.6 % (11.8-14.3) Platelet Count 144 10^3/uL (140-450) Mean Platelet Volume 9.4 fL (6.9-10.8) Neutrophils (%) (Auto) 73.3 % (37.0-80.0) Lymphocytes (%) (Auto) 23.7 % (10.0-50.0) Monocytes (%) (Auto) 2.6 % (0.0-12.0) Eosinophils (%) (Auto) 0.0 % (0.0-7.0) Basophils (%) (Auto) 0.4 % (0.0-2.0) Neutrophils # (Auto) 1.7 10 ^3/uL (1.6-8.6) Lymphocytes # (Auto) 0.5 10 ^3/uL (0.4-5.4) Monocytes # (Auto) 0.1 10 ^3/uL (0-1.3) Eosinophils # (Auto) 0 10 ^3/uL (0-0.8) Basophils # (Auto) 0 10 ^3/uL (0-0.2) Nucleated Red Blood Cells 0.2 % Sodium Level 138 mmol/L (136-145) Potassium Level 3.3 mmol/L (3.5-5.1) Chloride Level 101 mmol/L (98-107) Carbon Dioxide Level 26 mmol/L (20-31) Anion Gap 11 (5-15) Blood Urea Nitrogen 17 mg/dL (9-23) Creatinine 1.20 mg/dL (0.550-1.02) Glomerular Filtration Rate Calc 51 mL/min (>90) BUN/Creatinine Ratio 14.2 (10.0-20.0) Serum Glucose 107 mg/dL (74-106) Calcium Level 9.8 mg/dL (8.7-10.4) Troponin I High Sensitivity 54 ng/L (</=34) Lactic Acid Level 1.6 mmol/L (0.4-2.0) Influenza Type A Antigen Positive (Negative) Influenza Type B Antigen Negative (Negative) SARS-CoV-2 Antigen (Rapid) Negative (NEGATIVE) Other Laboratory Tests 11/22/24 06:40 Brief Hx & Hospital Course: 64-year-old female with a history of hypotension came in complaining of shortness of breaths found to have tPA flu treated with the Tamiflu also bilateral community-acquired pneumonia treated with Rocephin azithromycin mild nausea treated with the Zofran. At the time of discharge patient on room air stable vital signs afebrile. Discharged home on azithromycin Tamiflu and Zofran . Consults/Reason for consult None Operations or Procedures None Condition at Discharge: Fair Final Diagnosis/Problems List Acute Hypoxic respiratory failure:resolved Influenza type A: Tamiflu 75 mg p.o. b.i.d. for five days Bilateral community-acquired pneumonia: Rocephin azithromycin Nausea Secondary to flu: Zofran p.r.n. Hypertension: Amlodipine Discharge Disposition: Home Discharge Instruct/Medications Diet: Cardiac 2g Na,low cholest Activity: Light activity Follow Up/Referral: Follow up with your primary Dr Craig all previous home medications Medications: Tamiflu Azithromycin Zofran Transmitted to [facility] (Time taken for discharge summary 35 minutes) Discharge Statement: "Patient was advised to return to the ER or call 911 if any headaches, dizziness, shortness of breath, chest pain, abdominal pain, bleeding, fevers, or worsening of medical condition. Patient was counseled about treatment plan, medications, possible side effects, patientverbalized understanding. All questions were answered to the best of my ability. This discharge took greater then 30 minutes in planning, reviewing documentation, counseling the patient, and discussing with other team members." ASSESSMENT ASSESSMENT Hospital Course Improved Assessment Acute Hypoxic respiratory failure:resolved Influenza type A: Tamiflu 75 mg p.o. b.i.d. for five days Bilateral community-acquired pneumonia: Rocephin azithromycin Nausea Secondary to flu: Zofran p.r.n. Hypertension: Amlodipine Date of Service: Nov 24, 2024 Billing Provider: NAOMI COUCH MD Common Visit Codes: [id number] INP/OBS CARE(HIGH) NAOMI COUCH MD Nov 24, 2024 08:11
== END 2024-11-24 14:20 | disposition home or self-care (01) | DRG 177 ==
LOC: EDBD 17:54 → ER 17:54 → CENTRAL 21:37 → OVERFLOW 21:37 → CENTRAL 11-22 03:20
PROVIDERS: ADMIT Family Medicine; ATTEND Family Medicine
DX: J15.69 Pneumonia due to other Gram-negative bacteria (principal); J96.01 Acute respiratory failure with hypoxia; N17.9 Acute kidney failure, unspecified; J10.00 Influenza due to other identified influenza virus with unspecified type of pneumonia; J15.9 Unspecified bacterial pneumonia; I10 Essential (primary) hypertension; I95.9 Hypotension, unspecified; Z20.822 Contact with and (suspected) exposure to COVID-19
CPT/HCPCS: 36415; 70450; 71045; 80048; 83605; 84484; 85025; 87040; 87426; 87804; 93005; 94640; G0378; G9035; J2405; Q0162